=== PATIENT | female | born 1950 | race Caucasian/White ===

== ENCOUNTER 2024-04-03 11:35 | Emergency (ER) | payer MEDICARE ==
[~2024-04-03] VITALS: Ht 165.1 cm; Wt 59.0 kg
[2024-04-03 11:45] VITALS: BP 164/84; PULSE 99; RESP 18; TEMP 98.3; O2SAT 99
[2024-04-03] MEDS: HYDROcodone/APAP 5/325 MG 1 TAB TAB PO ONE (12:42)
[2024-04-03] MEDS: amLODIPine 5 MG TAB PO ONE (12:43)
[2024-04-03] MEDS ORDERED: MELO-174 PO (12:58)
[2024-04-03] MEDS ORDERED: ONDA-188 SL (12:58)
[2024-04-03 13:08] VITALS: BP 177/93; PULSE 88; RESP 13; TEMP 98.2; O2SAT 97
== END 2024-04-03 13:08 | disposition home or self-care (01) ==
LOC: MED 11:35
DX: S00.93XA Contusion of unspecified part of head, initial encounter (principal); S00.11XA Contusion of right eyelid and periocular area, initial encounter; M25.511 Pain in right shoulder; M25.512 Pain in left shoulder; I10 Essential (primary) hypertension; E78.5 Hyperlipidemia, unspecified; Z79.899 Other long term (current) drug therapy; W18.39XA Other fall on same level, initial encounter; Y93.89 Activity, other specified; Y92.092 Bedroom in other non-institutional residence as the place of occurrence of the external cause; Y99.8 Other external cause status
CPT/HCPCS: 70450; 70486; 72040; 99284